=== PATIENT | male | born 1965 | race Caucasian/White ===

== ENCOUNTER 2018-09-11 10:57 | Day surgery (SDC) | payer OTHER, SELFPAY ==
--- NOTE | 2018-09-05 12:26 | EKG12_ITS ---
Test Reason : PREOP Blood Pressure : / mmHG Vent. Rate : 070 BPM Atrial Rate : 070 BPM P-R Int : 144 ms QRS Dur : 094 ms QT Int : 392 ms P-R-T Axes : 042 -11 035 degrees QTc Int : 423 ms Normal sinus rhythm Minimal voltage criteria for LVH, may be normal variant Borderline ECG Confirmed by LIVIA DÍAZ ([id number]), video effects editor CHANDNI GONZALES ([id number]) on 09/07/2018 10:00:14 AM Referred By: Inés Ohara Confirmed By:LIVIA DÍAZ
[2018-09-05 13:33] LABS: Hemoglobin 16.2 g/dL (13.0-16.5); Mean Corp Hgb Conc 34.5 g/dL (32-36); Mean Corpuscular Hgb 29.9 pg (27.0-32.0); Mean Corpuscular Volume 86.7 fL (80-94); Mean Platelet Vol. 8.9 fl (6.2-12.0); Platelet Count 313 K/mm3 (150-450); RBC Distribution Width CV 13.2 % (11.6-14.6); RBC Distribution Width SD 40.8 fl (35.1-43.9); Red Blood Count 5.42 M/mm3 (4.6-6.2); White Blood Count 8.6 K/mm3 (4.4-11.0)
--- NOTE | 2018-09-10 16:34 | PCM.HP.BLA ---
History and Physical Date of Admission: 09/11/18 Kev Levy 1965 ? ? REFERRING PHYSICIAN: Darren Good MD ? CHIEF COMPLAINT: Consult (Consult Lt inguinal hernia) ? HPI: The patient is a 53 year old male who presents with left inguinal hernia. Has noted for the past few weeks. Denies history of incarceration. Notes some pain in the area, especially with activity. Denies fevers. Denies weight loss. Thinks he may have a right inguinal hernia also. ? ? PAST MEDICAL HISTORY ? Macular scar of right eye ? ? Other psoriasis and similar disorders ? ? Psoriasis ? PAST SURGICAL HISTORY ? COLONOSCOP W/ OR W/O BRSH SPEC ? 03/25/2016 ? Colonoscopy ? TONSILLECTOMY AND ADENOIDECTOMY HX ? Current Outpatient Medications: cholecalciferol, Vitamin D3, (VITAMIN D3) 50,000 unit cap capsule Take 1 capsule by mouth once each week. secukinumab (COSENTYX PEN, 2 PENS,) 150 mg/mL pnij inject 2 pens every 4 weeks ranitidine (ZANTAC) 150 mg tablet Take 1 tablet by mouth once daily as needed. Cholecalciferol, Vitamin D3, 2,000 unit cap Take 1 capsule by mouth once daily. ? ? ALLERGIES: Patient has no known allergies. ? PERSONAL HISTORY: Social History Socioeconomic History Marital status: Tobacco Use Smoking status: Former Smoker Packs/day: 1.00 Years: 5.00 Pack years: 5 Types: Cigarettes Smokeless tobacco: Former User Quit date: 03/18/1998 Substance and Sexual Activity Alcohol use: Yes Comment: occasional Drug use: No ? FAMILY HISTORY ? Prostate Cancer Maternal Grandfather ? ? ? REVIEW OF SYSTEMS: General - denies fevers, normal appetite Cardiovascular - denies chest pain Pulmonary - denies shortness of breath Gastrointestinal - has had gastritis, denies constipation, denies diarrhea, denies blood in stools Neurological - denies seizures Genitourinary - denies burning with urination Hematological - denies spontaneous/prolonged bleeding Skin - has psoriasis, denies nonhealing skin wounds Musculoskeletal - denies chronic joint/back pain Endocrine - denies diabetes Psychological ? no mood changes ? PHYSICAL EXAMINATION: General: The patient is 53 year old male, well nourished, well hydrated in no acute distress. The patient is oriented to time, place, and person. VITALS: Ht: 6'2 Wt: 234# BMI 30 BP 167/78 Head ? Normocephalic. EOM intact with sclera clear and no icterus noted. Wearing glasses. Mouth with mucus membranes moist. Neck - supple with no jugular venous distention noted. Trachea is midline. No masses noted. Lungs ? clear to auscultation. Normal breath sounds. No rales/rhonchi/wheezing noted. No labored breathing noted, such as retractions. No cough heard. Heart ? normal S1 and S2 auscultated. No rubs/clicks/murmurs noted. Regular rate. Abdomen ? soft and benign and protuberant. Normal bowel sounds. No abdominal bruits noted. Extremities ? no calf tenderness noted. No pitting edema noted. Genitalia ? normal male phallus, testes in normal anatomical position and no masses noted, left inguinal hernia and small right inguinal hernia - both reducible Skin ? normal skin integrity. Neurological ? gait normal, no focal deficits noted. Psych ? calm and appropriate ? IMPRESSION: left inguinal hernia, small right asymptomatic inguinal hernia ? PLAN: I have discussed the above with the patient. I have offered left inguinal hernia repair - he is asymptomatic from his right inguinal hernia - he does not want to undergo right inguinal hernia repair at this time. I have explained the procedure to the patient. I have counseled the patient as to the risks of the procedure, including but not limited to: infection, bleeding, injury to any blood vessels/nerves, scar tissue, injury to any intraabdominal organs, injury to bowel/bladder, injury to the spermatic cord and/or testicle, recurrence of hernia, wound infections, chronic groin pain, complications of anesthesia, etc. ? the patient understands. The patient wishes to proceed. I have answered all questions to the patient?s satisfaction and the patient has no further questions. .
[2018-09-11] VITALS (7 sets, daily range): BP systolic 129–166; BP diastolic 86–97; PULSE 75–97; RESP 14–16; TEMP 36.3–36.6; O2SAT 94–99; BMI 29.2
[2018-09-11] MEDS: Cefazolin 2 GM in 0.9% Normal Saline 100 ML IV (12:21)
[2018-09-11] MEDS: Bupivacaine 0.25% 30 ML Vial (13:32)
--- NOTE | 2018-09-11 13:40 | DCINST_ITS ---
Discharge Diet: No Restrictions - if feeling constipated, may take OTC laxatives Discharge Activity: Return to Normal Activity, May not drive while taking narcotic pain medications. Lifting Restrictions: no lifting greater than 50 pounds for one month Call your doctor if your incision/area has: Continuous Slow Oozing, Foul Smelling Discharge Call your doctor if you observe: Fever of 101 or Higher Additional Dressing/Incision Instructions:: Leave dressing in place. May get wet in shower. Do not soak - no tub baths/swimming. Apply ice packs to area as tolerated for comfort Allergies/Adverse Reactions: Allergies No Known Allergies Allergy (Verified 09/11/18 11:21) Medications to take at Discharge Ranitidine HCl [Zantac] 150 mg PO DAILY 09/04/18 Secukinumab [Cosentyx Pen] 150 mg SQ QMONTH 09/04/18 Hydrocodone Bitart/Apap 5-325 [Bucklin 5MG-325MG] 1 tab PO Q8H PRN PRN 5 Days #15 tab 09/11/18 The following prescriptions were given: Hydrocodone Bitart/Apap 5-325 [Bucklin 5MG-325MG] 1 tab PO Q8H PRN PRN 5 Days #15 tab PRN Reason: Pain Prescription Printed Orders to be completed after discharge: 12 Lead EKG [[facility]] Time Frame: 09/04/18, Facility: [facility], Location: Cardiovascular Services CBC-Complete Blood Cnt No Diff Time Frame: 09/04/18, Facility: [facility], Location: Laboratory Primary Care Physician: Darren Good MD [Primary Care Provider] - Test Results: Test results from this visit will be discussed in further detail at your follow- up appointment, if applicable. Please Follow Up With: Inés Ohara MD - call When: to be seen in 1-2 weeks, please call for date and time, thank you
--- NOTE | 2018-09-11 13:42 | PCM.OPRPT ---
Report of Operation Date of Procedure: 09/11/18 Pre-Operative Diagnosis: left inguinal hernia Post-Operative Diagnosis: left inguinal hernia - direct Surgery/Procedure Performed:: left inguinal hernia repair with mesh (preperitoneal placement) Description of Surgical Findings:: no indirect inguinal hernia sac noted, fascial defect in direct space, no femoral hernia Type of Anesthesia:: Local MAC Anesthesiologist: Flakita James Specimen's removed: none Estimated Blood Loss (mL): minimal Fluids Replaced: 1200 ml RL Description of Procedure: After informed consent was obtained, patient was brought to the Operating Room. Appropriate time out protocol was followed. He was then placed in the supine position. The patient was then placed under anesthesia. The lower torso and the left groin area and genitalia were then prepped with a surgical skin preparation and appropriate sterile surgical drapes were placed. The anatomical landmarks were identified and after anesthetizing the skin and subcutaneous tissues with 0.25% Marcaine with epinephrine, a transverse skin incision was made above the level of the internal inguinal ring. The subcutaneous tissues were then sharply dissected down to the external oblique fascia and any hemorrhage was adequately controlled with electrocoagulation. The external oblique was then divided obliquely along the fibers and a muscle-splitting incision was then made to divide the internal oblique musculature and fascia. The transversalis fascia was then identified and was then incised parallel to the inferior hypogastric vessels. The preperitoneal space was then entered. Blunt dissection was then done to identify out Dominic's ligament, the pubic tubercle and a large area surrounding these landmarks for placement of the mesh. The iliac vessels were identified. There was a fascial defect in Hasselbach's triangle - thus a direct inguinal hernia. No femoral hernia was noted. The spermatic cord was isolated. Careful attention was paid to its examination and there was no indirect inguinal hernia sac noted. A large left sided 3D Max mesh was then placed in the preperitoneal space such that it would be overlapping medially beyond the pubic tubercle and overlapping inferior to Dominic's ligament. The remainder of the mesh was flanged up against the anterior abdominal wall. The patient was then placed in the reversed [place] position to ensure that the mesh was flattened out against the anterior abdominal wall. The mesh covered the entire wound opening also. The internal oblique fascia was then closed using interrupted 0 prolene suture. One of the sutures was used to lock the mesh into position. Hemostasis was carefully controlled with electrocoagulation. The external oblique fascia was then reapproximated using a running 0 Vicryl suture. This was carefully done to avoid any entrapment of blood vessels/nerves. Radha's fascia was closed using Vicryl suture in an interrupted simple fashion. The skin incision was closed with 4-0 Monocryl in a running subcuticular fashion. Cavilon and Steri-Strips were used to reinforce the skin closure and appropriate sterile dressing was applied. The patient was brought to the Recovery Room in stable condition. Grafts/Implants Used: Bard 3D Max Mesh left large Lot [id number] exp 2023-02-10 - Complications none noted - Admit VTE Documentation VTE Present on Admission: Yes VTE Mechan Device Prophylaxis: SCD's
== END 2018-09-11 16:40 | disposition home or self-care (01) ==
LOC: SDC 10:57 → AC 10:58
PROVIDERS: Family Provider Family Medicine; PCP Family Medicine; Referring Provider Surgery; Visit Provider Surgery
PROC: (CPT 49505; principal; 2018-09-11 12:15)
DX: K40.90 Unilateral inguinal hernia, without obstruction or gangrene, not specified as recurrent (principal); L40.9 Psoriasis, unspecified; K21.9 Gastro-esophageal reflux disease without esophagitis; Z79.899 Other long term (current) drug therapy; Z87.891 Personal history of nicotine dependence
CPT/HCPCS: 49505; 36415; 85027; 93005; J7120; C1781; J2405

== ENCOUNTER 2019-09-28 10:54 | Emergency (ER) | payer OTHER, SELFPAY ==
[2018-09-11 11:31] VITALS: BMI 29.2
[2019-09-28 10:56] VITALS: BP 136/79; PULSE 85; RESP 17; TEMP 36.6; O2SAT 99; BMI 31.3
--- NOTE | 2019-09-28 11:07 | EKG12_ITS ---
Test Reason : SOB Blood Pressure : / mmHG Vent. Rate : 071 BPM Atrial Rate : 071 BPM P-R Int : 142 ms QRS Dur : 090 ms QT Int : 378 ms P-R-T Axes : 055 003 030 degrees QTc Int : 410 ms Normal sinus rhythm Normal ECG Confirmed by LIVIA DÍAZ ([id number]), loan expeditor REFUGIO ELDER ([id number]) on 10/01/2019 2:04:14 PM Referred By: MARTÍNEZ/MARIE Confirmed By:LIVIA DÍAZ
--- NOTE | 2019-09-28 11:08 | ED.DCSUM_ITS ---
History of Present Illness Chief Complaint: Shortness of Breath Informant: Patient Narrative: 54-year-old male presenting with intermittent episodes of shortness of breath as well as some sharp chest pains on the upper chest wall left lateral chest wall. He states that the pains in the shortness of breath are not necessarily correlated. He does feel as though sometimes when he walks upstairs he gets more short of breath that he previously did. He has no history of DVT/PE and no current risk factors. He also has a cough, however he states he takes lisinopril and has a chronic cough from that. He is unsure if he can distinguish the between the two. He states that the symptoms started about 11 days ago following a weekend in which his son had a libertarian at his house with family members from out of state. He states were about 20 of them nobody with was ill. He does state that they were wearing masks. He denies any fevers he is not had any change in in taste or smell. He is been able to eat and drink normally. His GI symptoms. Patient also complains of intermittent headaches. These do respond to medication but then do return. He does not believe he has had any fever associated with the headaches. Initially when his symptoms started he did have some myalgias but these resolved. Patient is concerned that he has COVID?19. Past Medical History - Allergies and Home Meds Allergies/Adverse Reactions: Allergies No Known Allergies Allergy (Verified 09/28/19 10:55) Primary Care Physician: Darren Good MD [Primary Care Provider] - Prior records reviewed: Yes Past Medical History: - - Hypertension Surgical History: noncontributory Lives: Spouse/ Significant Other Smoking Status: Former smoker Alcohol: None Drugs: None Review of Systems General: Reports: Chills Eyes: Denies: Visual changes - bilaterally, Diplopia ENT: Denies: Rhinorrhea, Sore throat Cardiovascular: Reports: Chest pain Respiratory: Reports: Dyspnea, Cough Gastrointestinal: Denies: Abdominal pain, Nausea, Vomiting Genitourinary: Denies: Dysuria Musculoskeletal: Reports: Myalgias Skin: Denies: Rash, Abrasions Neurological: Reports: Headache. Denies: Weakness, Parasthesia Physical Exam Vital Signs/Narrative: Vital Signs Temp Pulse Resp BP Pulse Ox 09/28/19 10:56 97.8 F 85 17 136/79 H 99 Inital Vital Signs reviewed: Yes General: Well nourished, No Acute Distress Head: Normocephalic, Atraumatic Eyes: Perrl, EOMI ENT: Moist mucous membranes Cardiovascular: Regular rate, Regular rhythm Respiratory: No distress, CTA bilaterally Back: Normal Inspection Extremities: Nontender, No edema Skin: Normal color, No rash Neurological: Alert, Oriented x3 Psychological: Normal affect Diagnostic/Tx/Re-eval Clinical Impression(s) from Imaging Studies Chest X-Ray 09/28/19 11:18 IMPRESSION: Hyperinflation. Electronically Signed: Josh Bazan, at 12:13 EDT , Service support , Laboratory Data 09/28/19 09/28/19 11:09 11:09 WBC 9.0 RBC 5.22 Hgb 14.9 Hct 45.1 MCV 86.4 MCH 28.5 MCHC 33.0 RDW Std Deviation 40.1 RDW Coeff of Fernando 12.8 Plt Count 314 MPV 8.9 Immature Gran % (Auto) 1.000 H Neut % (Auto) 73.7 H Lymph % (Auto) 15.4 L Garrard % (Auto) 7.3 Eos % (Auto) 1.9 Baso % (Auto) 0.7 Absolute Neuts (auto) 6.7 Absolute Lymphs (auto) 1.39 Nucleated RBC % 0 Sodium 133 L Potassium 4.4 Chloride 100 Carbon Dioxide 28.0 Anion Gap 5 BUN 11 Creatinine 0.95 Estim Creat Clear Calc 103.35 Est GFR (MDRD) Af Amer 106 Est GFR (MDRD) Non-Af 88 BUN/Creatinine Ratio 11.6 Glucose 113 H Calcium 9.5 Troponin I < 0.015 ED Disposition - Plan for ED Patient: Disposition: Home or Assisted Living Instructions: ED Upper Resp Infec No Abx Tx, ED Chest Pain [facility] Ch, Self-Care for Headaches Referrals: Darren Good MD [Primary Care Provider] -
--- NOTE | 2019-09-28 11:18 | RAD_ITS ---
STUDY: X-RAY CHEST REASON FOR EXAM: Male, 54 years old. SOB, WASSERMAN, FATIGUE, DIZZINESS AND INTERMITTENT CHEST PAIN. TECHNIQUE: Single AP portable view of the chest. COMPARISON: None. FINDINGS: EKG electrodes are seen. Hyperinflation. Scattered calcified granulomas. There is no demonstrated pleural abnormality. Normal size heart. Normal mediastinum and linda. There is prominence of the pulmonary hilar arteries without peripheral pulmonary vascular congestion, suggesting pulmonary hypertension. There is atherosclerotic tortuosity of the aortic arch and descending thoracic aorta. There are diffuse degenerative changes of the visualized thoracic spine. Normal visualized ribs, clavicles, and shoulders. There is no demonstrated abnormality of the visualized soft tissue structures of the upper abdomen. RAD/Chest 1 View (Portable) IMPRESSION: Hyperinflation. Electronically Signed: Josh Bazan, at 12:13 EDT , Service support ,
[2019-09-28 11:32] VITALS: O2SAT 98
[2019-09-28] MEDS: 0.9% Normal Saline 1,000 ML 1000 ML IV (11:37)
[2019-09-28 11:40] LABS: Absolute Lymphocyte Count 1.39 X10^3/uL (0.83-4.51); Absolute Neutrophil Count 6.7 X10^3/uL (2.0-7.7); Basophil# 0.06 X10^3/uL; Basophil% 0.7 % (0-1); Eosinophil# 0.17 X10^3/uL; Eosinophils% 1.9 % (0-5); Hematocrit 45.1 % (40-54); Hemoglobin 14.9 g/dL (13.0-16.5); Lymphocyte # 1.39 X10^3/ul (4.0); Lymphocyte % 15.4 % (19-41); Mean Corpuscular Hgb 28.5 pg (27.0-32.0); Mean Corpuscular Volume 86.4 fL (80-94); Mean Platelet Vol. 8.9 fl (6.2-12.0); Monocyte# 0.66 X10^3/uL; Monocyte% 7.3 % (0-10); NRBC Flagged by Analyzer 0 % (0-5); Neutrophil # 6.65 X10^3/uL (2.7-7.7); Neutrophil % 73.7 % (47-70); Platelet Count 314 K/mm3 (150-450); RBC Distribution Width CV 12.8 % (11.6-14.6); RBC Distribution Width SD 40.1 fl (35.1-43.9); Red Blood Count 5.22 M/mm3 (4.6-6.2)
[2019-09-28 11:52] LABS: Anion Gap 5 (5-15); BUN 11 mg/dL (7-18); BUN/Creat Ratio 11.6 RATIO (10-20); Calcium,Total 9.5 mg/dL (8.5-10.1); Chloride 100 mmol/L (98-107); Creatinine, Serum 0.95 mg/dL (0.70-1.30); EST Glomerular Filtration Rate 88 mL/min (>60); Est Glom Filt Rate - Afr Amer 106 mL/min (>60); Estimated Creatinine Clearance 103.35 ml/min; Glucose 113 mg/dL (74-106); Potassium 4.4 mmol/L (3.5-5.1); Sodium Level 133 mmol/L (136-145)
[2019-09-28 13:01] VITALS: BP 159/74; PULSE 67; RESP 15; O2SAT 96
[2019-09-28 13:01] LABS: D-Dimer Quantitative (DVT/PE) <= 0.27 FEU/ug/m (0.27-0.49)
[2019-09-28 13:48] VITALS: BP 116/74; PULSE 62; RESP 15; O2SAT 98
== END 2019-09-28 13:50 | disposition home or self-care (01) ==
PROVIDERS: Emergency Provider Student in an Organized Health Care Education/Training Program; PCP Family Medicine
DX: R07.89 Other chest pain (principal); R06.00 Dyspnea, unspecified; R51 Headache; Z03.818 Encounter for observation for suspected exposure to other biological agents ruled out; I10 Essential (primary) hypertension; Z87.891 Personal history of nicotine dependence; Z79.899 Other long term (current) drug therapy
CPT/HCPCS: 71045; 80048; 84484; 85025; 85379; 93005; 96360; 99284; J7030; A4216

== ENCOUNTER 2021-10-07 12:30 | Emergency (ER) | payer OTHER, SELFPAY ==
[2021-10-07 12:31] VITALS: BP 149/86; PULSE 106; RESP 14; TEMP 36.6; O2SAT 100; BMI 28.8
--- NOTE | 2021-10-07 13:09 | EX.ED.DYSGE1 ---
HPI History of Present Illness Chief Complaint: GI Bleed Informant: patient Narrative Narrative: 56-year-old male presenting to the emergency department chief complaint of rectal bleeding. Patient states for about a week he has had pain in his rectum and a swelling that he figured was a hemorrhoid. Today the pain is resolved but he is now bleeding. He states he has been bleeding for about the past 3 hours. [facility] Medical History (Updated 10/07/21 @ 13:[address] Hermilo Tejeda DO) Hypertension Home Medications secukinumab 150 mg/mL subcutaneous pen injector 150 mg SQ QMONTH 09/04/18 [History Last Taken 08/01/18] amlodipine 10 mg tablet 10 mg PO DAILY 10/07/21 [History Last Taken Unknown] Allergy/AdvReac Type Severity Reaction Status Date / Time No Known Allergies Allergy Verified 10/07/21 12:31 Social History (Updated 10/07/21 @ 13:[address] Hermilo Tejeda DO) Smoking Status: Former smoker substance use type: does not use ROS ROS ED Constitutional Constitutional ED: Denies chills or weight loss Eyes Eyes: Denies change in vision or diplopia ENT ENT ED: Denies ear pain, rhinorrhea or sore throat Cardiovascular Cardiovascular: Denies chest pain, orthopnea, palpitations or racing heartbeat Respiratory/Chest Respiratory/Chest: Denies cough, dyspnea or orthopnea Gastrointestinal Gastrointestinal: Reports other Details: Rectal pain/rectal bleeding ; Denies abdominal pain, diarrhea, nausea or vomiting Genitourinary Genitourinary ED: Denies dysuria, hematuria or urinary frequency Musculoskeletal Musculoskeletal: Denies arthralgias or myalgias Integumentary Denies abscess or rash Neurologic Neurologic: Denies headache(s) or weakness Psychiatric Psychiatric: Denies anxiety, depression, suicidal ideation or suicidal thoughts Endocrine Endocrinology: Denies polydipsia, polyphagia or polyuria Allergic/Immunologic Allergic/Immunologic ED: Denies mouth swelling, tongue swelling or urticaria EXAM Physical Exam Const Vital Signs: 10/07/21 12:31 Temperature 98 F Temperature Source Temporal Pulse Rate 106 H Respiratory Rate 14 Blood Pressure 149/86 H Blood Pressure Mean 107 Pulse Ox 100 Oxygen Delivery Method Room Air Positive well nourished and well developed General Appearance ED: well developed HEENT Reports normocephalic, head/scalp atraumatic and moist mucous membranes Eyes PERRL and EOMs intact bilaterally Neck no lymphadenopathy, supple and no JVD Resp normal respiratory effort and clear to auscultation bilaterally Cardio regular rate, regular rhythm and no murmurs GI normal to inspection, nondistended, normoactive bowel sounds and non-tender Palpation: soft Narrative: Upon rectal examination in the patient's 8 o'clock position there is a pink fleshy swelling consistent with an external hemorrhoid. There is a 2 mm hole in this area that has mild venous bleeding if you squeeze the tissue. There is no purple tissue or thrombosed blood felt in the hemorrhoid. Back/Spine no CVA tenderness and normal ROM Extremity normal to inspection General Extremety ED: Negative for edema General Extremity: Negative for edema Neuro oriented x3 and CN's II-XII intact bilaterally Sensorium / Orientation: alert Motor Exam: strength 5/5 throughout Psych mental status grossly normal Mood & Affect: Negative for depressed or tearful Skin no rashes or lesions noted and no wounds MDM MDM MDM Narrative Medical decision making narrative: Small amount of Gelfoam and gauze was placed over the hemorrhoid. Patient was given reassurance that this will heal. Advised to leave the packing in place for as long as possible. He should follow-up with surgery should he get recurrent disease. Discharge Plan Triage Chief Complaint: GI Bleed ED Provider: Hermilo Tejeda Dx/Rx/DC Orders Clinical Impression: Rectal bleeding, External bleeding hemorrhoids Instructions: Treating Hemorrhoids: Self-Care Prescriptions: No Action secukinumab 150 MG/ML pen injector 150 mg SQ QMONTH amlodipine 10 mg tablet 10 mg PO DAILY Primary Care Provider: Darren Good Referrals: Darren Good MD [Primary Care Provider] - As Needed Gabby Silva MD [Med Staff - Active Staff] - As Needed (for surgical evaluation ) Disposition Disposition: Home, Self Care
== END 2021-10-07 13:30 | disposition home or self-care (01) ==
PROVIDERS: Emergency Provider Emergency Medicine; PCP Family Medicine; Visit Provider Emergency Medicine
DX: K64.4 Residual hemorrhoidal skin tags (principal); K62.5 Hemorrhage of anus and rectum; I10 Essential (primary) hypertension; Z87.891 Personal history of nicotine dependence
CPT/HCPCS: 99282